=== PATIENT | female | born 1995 | race Caucasian/White ===

== ENCOUNTER 2016-07-06 10:59 | Inpatient (IN) ==
[2016-07-10] MEDS ORDERED: AMBIEN PO PRN (20:47)
[2016-07-10] MEDS ORDERED: ZOFRAN IV PRN (20:47)
[2016-07-10] MEDS ORDERED: KEFZOL 1 GM/D5W 1 GM/50 ML IVPB IV PRN (20:47)
[2016-07-10] MEDS ORDERED: TYLENOL PO PRN (20:47)
[2016-07-10] MEDS ORDERED: REGLAN PO ONE (20:47)
[2016-07-10] MEDS ORDERED: BRETHINE SUBQ PRN (20:47)
[2016-07-10] MEDS ORDERED: PEPCID PO ONE (20:47)
[2016-07-10] MEDS ORDERED: LR 1,000 ML IV ONE (20:47)
[2016-07-10] MEDS ORDERED: PEPCID PO PRN (20:47)
[2016-07-10] MEDS ORDERED: STADOL IV PRN ×2 (20:47)
[2016-07-10] MEDS ORDERED: PEPCID IV PRN (20:47)
[2016-07-10] MEDS ORDERED: CYTOTEC PO ONE (23:00)
[2016-07-10 23:11] LABS: MANUAL DIFF NEEDED? NO
[2016-07-10 23:20] LABS: BASO% 0.2 % (0.0-0.8); EOS% 0.8 % (0.0-10.0); HEMATOCRIT 35.3 % (37.0-47.0); HEMOGLOBIN 11.2 g/dL (12.0-16.0); IMM GRAN# 0.11 X1000 (0.0-0.04); IMM GRAN% 0.8 % (0.0-0.5); LYMPH# 1.39 X1000 (1.2-3.4); LYMPH% 10.5 % (20.5-51.1); MCH 25.6 PG (27-31); MCHC 31.7 g/dL (33-37); MCV 80.8 FL (81-99); MONO% 6.8 % (1.7-9.3); MPV 10.3 FL (7.4-10.4); NEUT% 80.9 % (42.2-75.2); PLT 300 X1000 (130-400); RBC 4.37 XMIL (4.2-5.4)
[2016-07-11] MEDS: CYTOTEC PO SCH ×2 (03:15→17:40)
[2016-07-11] MEDS: STADOL IV PRN ×2 (05:03→07:58)
[2016-07-11] MEDS ORDERED: PITOCIN 30 UNITS/LR 30 UNITS/500 ML IV.SOLN IV SCH (07:00)
[2016-07-11] MEDS ORDERED: XYLOCAINE-MPF 1% 10 ML ONE (08:48)
[2016-07-11] MEDS ORDERED: FENTANYL ONE (08:49)
[2016-07-11] MEDS ORDERED: NAROPIN 0.2% ONE (08:49)
[2016-07-11] MEDS ORDERED: LR 3,000 ML ONE (08:52)
[2016-07-11] MEDS ORDERED: NAROPIN 0.2% EPIDURAL PRN (09:06)
[2016-07-11] MEDS ORDERED: FENTANYL IV ONE (09:15)
[2016-07-11] MEDS ORDERED: XYLOCAINE-MPF 1% INJ ONE (09:15)
[2016-07-11] MEDS ORDERED: MINERAL OIL ONE (10:03)
[2016-07-11] MEDS ORDERED: XYLOCAINE-MPF 1% ONE (13:48)
[2016-07-11] MEDS ORDERED: PERCOCET-5 PO PRN (14:05)
[2016-07-11] MEDS ORDERED: PITOCIN 30 UNITS/LR 30 UNITS/500 ML IV.SOLN IV ONE ×2 (14:05→17:10)
[2016-07-11] MEDS ORDERED: MINERAL OIL PO PRN ×2 (14:05→17:10)
[2016-07-11] MEDS ORDERED: HYDROXYZINE PO PRN ×2 (14:05→17:10)
[2016-07-11] MEDS ORDERED: BENADRYL PO PRN ×3 (14:05→17:10)
[2016-07-11] MEDS ORDERED: BENADRYL IV PRN ×2 (14:05→17:10)
[2016-07-11] MEDS ORDERED: AMBIEN PO PRN ×2 (14:05→17:10)
[2016-07-11] MEDS ORDERED: PERI MEDS (DERMOPLAST/NUPERCAINAL/TUCKS) MISC PRN ×2 (14:05→17:10)
[2016-07-11] MEDS ORDERED: PERCOCET-10 PO PRN (14:05)
[2016-07-11] MEDS ORDERED: HYDROXYZINE IM PRN ×2 (14:05→17:10)
[2016-07-11] MEDS ORDERED: CYTOTEC PO PRN ×2 (14:05→17:10)
[2016-07-11] MEDS ORDERED: NORCO-10 PO PRN ×2 (14:05→17:10)
[2016-07-11] MEDS ORDERED: PITOCIN IM PRN ×2 (14:05→17:10)
[2016-07-11] MEDS ORDERED: XYLOCAINE-MPF 1% INJ PRN ×2 (14:05→17:10)
[2016-07-11] MEDS ORDERED: NORCO-5 PO PRN (14:05)
[2016-07-11] MEDS ORDERED: PITOCIN 20 UNITS/LR 20 UNITS/1,000 ML IV.SOLN IV SCH ×2 (14:05→17:10)
[2016-07-11] MEDS ORDERED: MOTRIN PO PRN (14:05)
[2016-07-11] MEDS ORDERED: BOOSTRIX VACCINE IM ONE (14:05)
[2016-07-11] MEDS ORDERED: M-M-R II VACCINE SUBQ ONE (14:05)
--- NOTE | 2016-07-11 14:29 | OPERATIVE NOTE ---
PROCEDURE DATE: 07/11/2016 DELIVERY PHYSICIAN: Rai Palencia MD TYPE OF DELIVERY: Spontaneous controlled vaginal delivery. ANESTHESIA: Epidural. FINDINGS: At 13:50, a 6 pound 12 ounce female was delivered in occiput anterior presentation. Apgars were 9 at 1 minute and 10 at 5 minutes. SUMMARY: Ms. Felix is a 21-year-old primigravida at 40.6 weeks gestation. Her blood type is O positive. Rubella immune. Hepatitis B surface antigen, HIV, and group B strep is negative. She was brought into the labor and delivery last night and started on Cytotec and this morning we began Pitocin augmentation and induction of labor. Membranes were ruptured revealing clear fluid. She received an epidural for labor pain management. She progressed to labor without signs of distress or dystocia. She became complete and began pushing. She soon crowned. At that point, she was placed in dorsal lithotomy position. The perineum was prepped draped in usual fashion. A midline episiotomy was performed and spontaneous controlled vaginal delivery occurred. Once the 's head was delivered, the oropharynx was bulb suctioned. Shoulders and body delivered without complications. Cord was clamped and cut. The infant was handed to the nurses for further care and evaluation. Cord blood was obtained. Placenta was spontaneously delivered and was intact. There were no cervical on lacerations, and a midline second-degree episiotomy was repaired in layers using 2-0 Vicryl suture. Blood loss approximately 200 mL and no delivery complications. The patient remained in the LDR recovering without difficulty. cc: Rai Palencia MD
[2016-07-11] MEDS: PERICOLACE PO SCH (20:43)
[2016-07-11] MEDS ORDERED: PERICOLACE PO SCH (21:00)
[2016-07-12] MEDS: MOTRIN PO PRN ×2 (00:16→09:56)
[2016-07-12] MEDS: NORCO-5 PO PRN (00:16)
[2016-07-12 06:33] LABS: HEMATOCRIT 30.4 % (37.0-47.0); HEMOGLOBIN 9.4 g/dL (12.0-16.0); MCH 25.5 PG (27-31); MCHC 30.9 g/dL (33-37); MCV 82.4 FL (81-99); MPV 10.6 FL (7.4-10.4); RBC 3.69 XMIL (4.2-5.4)
[2016-07-12] MEDS: PRECARE PO SCH (09:56)
[2016-07-12] MEDS: PERICOLACE PO SCH (21:09)
[2016-07-13] MEDS: NORCO-5 PO PRN (00:42)
[2016-07-13] MEDS: PRECARE PO SCH (10:41)
[2016-07-13] MEDS: MOTRIN PO PRN (10:41)
[2016-07-13 11:25] VITALS: BP 121/68
--- NOTE | 2016-07-13 14:33 | DISCHARGE SUMMARY ---
ADMISSION DATE: 07/10/2016 DISCHARGE DATE: 07/13/2016 ADMITTING DIAGNOSIS: Term for induction. DISCHARGE DIAGNOSIS: Term , delivered; vaginal delivery. CONDITION: Stable. DIET: As tolerated. ACTIVITY: Routine . MEDICATIONS: [place] 5, Motrin 800, vitamins with iron, and stool softener. FOLLOWUP: She is to follow up in 6 weeks at the office. HISTORY AND HOSPITAL COURSE: Please refer to Ms. Felix's records and delivery note. She was admitted for induction. Had a successful induction and has done well afterwards. Currently day 2. Ambulating, voiding, and tolerating p.o. without difficulty and desiring discharge. PHYSICAL EXAMINATION: Vital Signs: Stable. She is afebrile. General: She is alert and cooperative, in no distress. Neck: Supple. Lungs: Clear. Heart: Regular sinus rhythm. Abdomen: Slightly distended but uterus is firm and intact. Extremities: No cyanosis, clubbing, edema in her extremities. LABS: Hemoglobin 9.4. DISPOSITION: We will discharge with the above instructions. cc: MD Rai Salmeron MD
== END 2016-07-13 15:00 | disposition home or self-care (01) ==
LOC: UNDOADMIN 10:59 → P.WC 10:59 → P.LD 07-10 19:58 → P.WC 07-11 15:46
PROVIDERS: ADMIT Obstetrics & Gynecology; ATTEND Obstetrics & Gynecology